=== PATIENT | male | born 2000 | race Two or more races ===

== ENCOUNTER 2019-04-04 11:05 | Emergency (ER) | payer BC, MEDICAID ==
[~2019-04-04] VITALS: Ht 175.3 cm; Wt 45.8 kg
[2019-04-04 11:42] LABS: Urine WBC None Seen /hpf (0 - 3)
[2019-04-04 11:52] LABS: Basophils # (auto) 0 uL; Basophils % (auto) 0.2 % (0.0-2.0); Eosinophils # (auto) 0 uL; Hematocrit 47.5 % (41.0-53.0); Hemoglobin 16.2 g/dL (13.5-17.5); Lymphocytes # (auto) 1.1 uL; Lymphocytes % (auto) 11.9 % (10.0-50.0); Mean Corpuscular Hemoglobin 30.6 pg (28.0-32.0); Mean Corpuscular Hgb Conc. 34.1 g/dL (32.0-36.0); Mean Corpuscular Volume 89.7 fL (80.0-100.0); Monocytes # (auto) 0.6 uL; Monocytes % (auto) 6.2 % (0.0-12.0); Neutrophils # (auto) 7.8 uL; Neutrophils % (auto) 81.7 % (37.0-80.0); Platelet Count (auto) 316 10^3/uL (140-450); White Blood Cell 9.6 10^3/uL (4.4-10.8)
[2019-04-04 12:05] LABS: Calcium 9.6 mg/dL (8.5-10.1)
[2019-04-04 12:05] LABS: Urine Bacteria NONE SEEN /hpf (None Seen); Urine Blood Negative /uL (Negative); Urine Mucus FEW (None Seen); Urine Specific Gravity 1.028 (1.001-1.035)
[2019-04-04 12:09] LABS: BUN/Creatinine Ratio 11.6; Bilirubin, Total 1.4 mg/dL (0.2-1.0); Total Protein 8.5 g/dL (6.4-8.2)
[2019-04-04] MEDS ORDERED: KETOROLAC TROMETH 60MG/2ML VIAL IM ONE (14:00)
[2019-04-04] MEDS ORDERED: ONDANSETRON ODT 4 MG TAB PO ONE (14:00)
[2019-04-04 14:07] VITALS: BP 115/75
== END 2019-04-04 14:24 | disposition home or self-care (01) ==
LOC: ER 11:05
DX: N20.0 Calculus of kidney (principal); R11.2 Nausea with vomiting, unspecified; Z90.49 Acquired absence of other specified parts of digestive tract
CPT/HCPCS: 36415; 74176; 80053; 81001; 82150; 83690; 85025; 96372; 99284; J1885; Q0162